=== PATIENT | male | born 1995 | race Asian ===

== ENCOUNTER 2019-09-24 21:10 | Emergency (ER) | payer OTHER ==
[2019-09-24 21:23] VITALS: BP 133/80
[2019-09-24] MEDS ORDERED: IBUPROFEN 800 MG TABLET PO STA (21:40)
--- NOTE | 2019-09-24 21:45 | ED Physician Documentation ---
History of Present Illness - Stated complaint Stated Complaint: LT ARM SWELLING - Chief complaint Chief Complaint: Trauma Ext - History obtained from History obtained from: Patient - History of Present Illness Timing: How many days ago (several days) Pain level max: 7 Pain level now: 5 - Additonal information Additional information: 24-year-old active [employer] male presents to the emergency department after sustaining a left arm humerus fracture while he was in [place]. states L arm is swollen and bruised Review of Systems Constitutional: denies: Fever, Chills GI: denies: Vomiting PD PAST MEDICAL HISTORY - Past Medical History Past Medical History: No Cardiovascular: None Respiratory: None Neuro: None Endocrine/Autoimmune: None GI: None : None HEENT: None Psych: None Musculoskeletal: None Derm: None - Past Surgical History Past Surgical History: Yes - Present Medications Home Medications: Ambulatory Orders Medication Instructions Recorded Confirmed Ibuprofen [Motrin] 800 mg PO Q8H PRN #30 tablet 09/24/19 Hydrocodone/Acetaminophen 1 each PO PRN 09/25/19 [Hydrocodone-Acetamin 5-325 mg] - Allergies Allergies/Adverse Reactions: Allergies Allergy/AdvReac Type Severity Reaction Status Date / Time No Known Drug Allergies Allergy Verified 09/25/19 12:48 - Social History Does the pt smoke?: No Smoking Status: Never smoker Does the pt drink ETOH?: Yes Does the pt have substance abuse?: No - Immunizations Immunizations are current?: Yes - POLST Patient has POLST: No PD ED PE NORMAL - Vitals Vital signs reviewed: Yes - General General: Alert and oriented X 3, No acute distress, Well developed/nourished - HEENT HEENT: Moist mucous membranes - Neck Neck: Supple, no meningeal sign - Derm Derm: Warm and dry - Extremities Extremities: Other (L arm in a brace on the upper arm. mild swelling and ecchymosis distal to this. NVI. compartments soft. ) - Neuro Neuro: Alert and oriented X 3 - Psych Psych: Normal mood, Normal affect Results - Vitals Vitals: Vital Signs - 24 hr 09/24/19 21:19 Temperature 37.2 C Heart Rate 77 Respiratory 16 Rate Blood Pressure 133/80 H O2 Saturation 99 Oxygen O2 Source Room air PD MEDICAL DECISION MAKING - ED course Complexity details: considered differential, d/w patient ED course: Patient with a known humerus fracture. He is seen orthopedics in the morning. We will have him elevate the arm at home. No evidence of compartment syndrome. No evidence of infection. Patient counseled regarding signs and symptoms for which I believe and urgent re-evaluation would be necessary. Patient with good understanding of and agreement to plan and is comfortable going home at this time This document was made in part using voice recognition software. While efforts are made to proofread this document, sound alike and grammatical errors may occur. Departure - Departure Disposition: 01 Home, Self Care Clinical Impression: Humerus shaft fracture Qualifiers: Encounter type: initial encounter Fracture type: closed Fracture morphology: unspecified fracture morphology Laterality: left Qualified Code(s): S42.302A - Unspecified fracture of shaft of humerus, left arm, initial encounter for closed fracture Condition: Good Instructions: ED Fx Upper Ext Follow-Up: Bharat Mott MD [Primary Care Provider] - Tomorrow Prescriptions: Ibuprofen [Motrin] 800 mg PO Q8H PRN #30 tablet PRN Reason: PAIN &/OR FEVER Comments: Return if you worsen. Follow-up with orthopedics tomorrow. Continue to elevate your left upper extremity whenever possible. Discharge Date/Time: 09/24/19 22:05
== END 2019-09-24 22:05 | disposition home or self-care (01) ==
LOC: ED 21:10
DX: S42.302A Unspecified fracture of shaft of humerus, left arm, initial encounter for closed fracture (principal); W19.XXXA Unspecified fall, initial encounter
CPT/HCPCS: 99282; 99283; A9270

== ENCOUNTER 2019-09-27 10:45 | Day surgery (SDC) | payer OTHER ==
[~2019-09-27 10:45] MED LIST: cefTRIAXone 2 GM VIAL ONE
[2019-09-27] MEDS ORDERED: DEXAMETHASONE 4 MG/ML VIAL IVP ONE (10:46)
[2019-09-27] MEDS ORDERED: ROCURONIUM 50 MG/5 ML VIAL IVP ONE (10:46)
[2019-09-27] MEDS ORDERED: fentaNYL 100 MCG/2 ML VIAL IVP ONE (10:46)
[2019-09-27] MEDS ORDERED: LIDOCAINE 2% 10 ML MDV SUBQ ONE (10:46)
[2019-09-27] MEDS ORDERED: GLYCOPYRROLATE 1 MG/5 ML VIAL IVP ONE (10:46)
[2019-09-27] MEDS ORDERED: PROPOFOL 200 MG/20 ML VIAL IVP ONE (10:46)
[2019-09-27] MEDS ORDERED: MIDAZOLAM 2 MG/2 ML VIAL IVP ONE (10:46)
[2019-09-27] MEDS ORDERED: KETOROLAC 30 MG/ML VIAL IVP ONE (10:46)
[2019-09-27] MEDS ORDERED: NEOSTIGMINE 1 MG/1 ML 10 ML MDV IVP ONE (10:46)
[2019-09-27] MEDS ORDERED: LACTATED RINGERS 1,000 ML IV ONE ×2 (11:08→18:11)
[2019-09-27] MEDS ORDERED: BUPIVACAINE 0.25% PF 30 ML VIAL ONE (11:25)
--- NOTE | 2019-09-27 13:13 | ANESTHESIA ---
Pre-Anesthesia VS, & Labs - Diagnosis Left humeral shaft fracture - Procedure open treatment of left humeral shaft fracture Vital Signs: Temp Pulse Resp BP Pulse Ox 36.4 C L 88 16 151/106 H 98 09/27/19 10:52 09/27/19 10:52 09/27/19 10:52 09/27/19 10:52 09/27/19 10:52 Height 6 ft 0.83 in Weight (kg) 90.5 kg Body Mass Index 25.7 - NPO >8 hours Home Medications and Allergies Home Medications: Ambulatory Orders Hydrocodone/Acetaminophen [Hydrocodone-Acetamin 5-325 mg] 1 each PO PRN 09/25/19 Docusate Sodium 250Mg Capsule [Colace 250Mg Capsule] 1 DAILY 09/27/19 Hydrocodone/Acetaminophen [Hydrocodone-Acetamin 5-325 mg] 1 each PO PRN 09/25/19 Docusate Sodium 250Mg Capsule [Colace 250Mg Capsule] 1 DAILY 09/27/19 Allergies/Adverse Reactions: Allergies Allergy/AdvReac Type Severity Reaction Status Date / Time No Known Drug Allergies Allergy Verified 09/25/19 12:48 Anes History & Medical History - Anesthetic History Anesthesia Complications: reports: No previous complications - Medical History Cardiovascular: reports: None Pulmonary: reports: None Gastrointestinal: reports: None Urinary: reports: None Neuro: reports: None Musculoskeletal: reports: None, Other Endocrine/Autoimmune: reports: None Blood Disorders: reports: None Skin: reports: None Smoking Status: Never smoker Psychosocial: reports: Alcohol (2-4 drinks per week) - Surgical History Eyes Ears Nose Throat (EENT): Tonsil/Adenoidectomy Exam General: Alert, Oriented x3, Cooperative, No acute distress Dental: WNL Mouth Openin Fingerbreadth Neck Mobility: Normal Mallampati classification: I Thyromental Distance: greater than 6 cm Respiratory: Lungs clear, Normal breath sounds, No respiratory distress, No accessory muscle use Cardiovascular: Regular rate, Normal S1, Normal S2, No murmurs Mental/Cognitive Status: Alert/Oriented X3, Normal for patient Plan Anesthesia Type: General Consent for Procedure(s) Verified and Reviewed: Yes Code Status: Attempt Resuscitation ASA classification: 1-Healthy patient Is this case an emergency?: No
[2019-09-27] MEDS ORDERED: CELECOXIB 100 MG CAPSULE PO ONE (13:26)
[2019-09-27] MEDS ORDERED: ACETAMINOPHEN 1,000 MG/100 ML 100 ML IV ONE (13:26)
[2019-09-27] MEDS ORDERED: GABAPENTIN 400 MG CAPSULE ONE (13:26)
[2019-09-27] MEDS ORDERED: oxyCODONE 5 MG TABLET PO PRN (18:32)
[2019-09-27] MEDS ORDERED: ONDANSETRON 4 MG/2 ML VIAL IVP PRN (18:32)
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
[2019-09-27] MEDS: HYDROmorphone 1 MG/ML CARPUJECT ONE ×2 (18:52→18:57)
[2019-09-27 19:46] VITALS: BP 142/72
--- NOTE | 2019-09-30 08:44 | XRAY Report ---
Reason: left humerus orif Procedure Date: 09/27/2019 Accession Number: [id number] / [id number] Procedure: [place] - OR C-Arm Procedure CPT Code: Final Report FULL RESULT: EXAM: FLUOROSCOPIC GUIDANCE EXAM DATE: 09/27/2019 06:42 PM. CLINICAL HISTORY: Left humerus ORIF. COMPARISON: None. IMPRESSION: Fluoroscopic guidance provided for ORIF left humerus. Total fluoroscopy time: 18 seconds. Number of images: 2. RADIA
== END 2019-09-27 19:45 | disposition home or self-care (01) ==
LOC: SDS 10:45 → OBS 19:08 → SDS 19:45
PROVIDERS: ATTEND Orthopaedic Surgery
PROC: 0PSG04Z Reposition Left Humeral Shaft with Internal Fixation Device, Open Approach (ICD-10-PCS; principal; 2019-09-27 12:30)
DX: S42.322A Displaced transverse fracture of shaft of humerus, left arm, initial encounter for closed fracture (principal)

== ENCOUNTER 2022-08-06 09:26 | Outpatient (CLI) | payer OTHER ==
--- NOTE | 2022-08-08 10:09 | MRI Report ---
PROCEDURE: KNEE WO - RT INDICATIONS: KNEE PAIN TECHNIQUE: Noncontrast sagittal PD fast spin echo and T2 fast spin echo with fat saturation, sagittal 3-D gradie nt sequence with fat saturation; coronal T1 spin echo and PD fast spin echo with fat saturation, and axial PD fast spin echo with fat saturation through the knee. COMPARISON: None. FINDINGS: Image quality: Excellent. Menisci: Peripheral displacement of medial meniscus bowing medial collateral ligament is seen. The me dial and lateral menisci are intact.. The meniscal root ligaments appear intact. Cruciate ligaments: There is full-thickness rupture of anterior cruciate ligament near its femoral in sertion. Posterior cruciate ligament is intact. Medial structures: Low to moderate grade MCL sprain/partial thickness tear is noted. The posterior ob lique ligament, semimembranosus tendon insertions, and oblique popliteal ligament, and meniscocapsula r junction appear intact. Visualized portions of the pes anserinus tendons appear normal. No abnorm al bursal fluid. Lateral structures: The lateral collateral ligament, long and short heads of the biceps femoris tend on appear intact. The popliteus tendon appears normal; the popliteofibular ligament appears intact. Iliotibial band appears normal. Anterior structures: The quadriceps and patellar tendons appear intact. Patellar alignment is napoleon l. No femoral trochlear dysplasia or ventral trochlear prominence. No edema in the infrapatellar fa t pad. Bones and cartilage: Bony contusion involving lateral weightbearing portion of femoral condyle and po sterior aspect of proximal tibia extending to posterior aspect of lateral tibial plateau. No cortical disruption is seen. No discrete fracture line. Slight anterior tibial translation is seen. Bony cont usion is also noted involving medial periphery of medial femoral condyle weightbearing portion. The c artilage of the medial and lateral femorotibial compartments, as well as the patellofemoral compartme nt, appears normal in thickness. Joint space: There is moderate knee joint fluid. No Retana's cyst. Normal appearing synovial plicae are incidentally noted. IMPRESSION: 1. Full-thickness rupture of ACL near its femoral insertion with slight anterior tibial translation a nd bony contusion involving weightbearing portion of lateral femoral condyle and adjacent posterior a spect of proximal tibia extending to both medial and lateral tibial plateau. No discrete fracture yordy e is seen. Bony contusion also noted in medial periphery of medial femoral condyle weightbearing port ion. Articulating cartilages are intact. 2. PCL is intact. 3. No evidence of focal meniscal tear. 4. Low to moderate grade MCL sprain/partial thickness tear. 5. Moderate joint effusion, no gross loose bodies. Reviewed by: Franki Roque MD on 08/08/2022 10:08 AM PDT Approved by: Franki Roque MD on 08/08/2022 10:08 AM PDT Station ID: [id number]
== END 2022-08-06 09:27 | disposition home or self-care (01) ==
LOC: DI 09:26
DX: S83.511A Sprain of anterior cruciate ligament of right knee, initial encounter (principal); S83.411A Sprain of medial collateral ligament of right knee, initial encounter; M25.462 Effusion, left knee